=== PATIENT | female | born 1945 ===

== ENCOUNTER 2021-10-12 12:09 | Emergency (ER) | payer OTHER ==
[~2021-10-12] VITALS: Ht 162.6 cm; Wt 90.7 kg
[2021-10-12 12:41] VITALS: BP 169/88
[2021-10-12] MEDS ORDERED: CEPH500C PO (12:53)
[2021-10-12] MEDS ORDERED: TETANUS-DIPTH-ACEL PERTUSSIS 0.5ML SYR Tdap IM ONE (13:00)
== END 2021-10-12 13:10 | disposition home or self-care (01) ==
LOC: ER 12:14
DX: S61.412A Laceration without foreign body of left hand, initial encounter (principal); W18.09XA Striking against other object with subsequent fall, initial encounter; Y93.89 Activity, other specified; Y92.89 Other specified places as the place of occurrence of the external cause; Y99.8 Other external cause status
CPT/HCPCS: 12002; 90471; 90715